=== PATIENT | female | born 1985 ===

== ENCOUNTER 2021-06-17 17:07 | Emergency (ER) | payer SELFPAY ==
[~2021-06-17] VITALS: Ht 162.6 cm; Wt 70.0 kg
[2021-06-17 17:18] VITALS: BP 128/83
[2021-06-17] MEDS ORDERED: LEVO100 PO (17:19)
== END 2021-06-17 17:46 | disposition left against medical advice (07) ==
LOC: EMS 17:10
DX: R07.9 Chest pain, unspecified (principal); Z53.21 Procedure and treatment not carried out due to patient leaving prior to being seen by health care provider